=== PATIENT | female | born 1975 | race African-American/Black ===

== ENCOUNTER 2018-06-30 06:10 | Emergency (ER) | payer MEDICAID, MEDICARE ==
[~2018-06-30] VITALS: Ht 180.3 cm; Wt 102.0 kg
[2018-06-30] MEDS ORDERED: IBUPROFEN 600MG TABLET PO ONE (06:45)
[2018-06-30 09:45] VITALS: BP 127/82
== END 2018-06-30 10:16 | disposition home or self-care (01) ==
LOC: ER 06:20
DX: S40.012A Contusion of left shoulder, initial encounter (principal); S00.83XA Contusion of other part of head, initial encounter; S90.01XA Contusion of right ankle, initial encounter; M19.90 Unspecified osteoarthritis, unspecified site; Z98.890 Other specified postprocedural states; Z88.6 Allergy status to analgesic agent; Z88.8 Allergy status to other drugs, medicaments and biological substances; Y04.0XXA Assault by unarmed brawl or fight, initial encounter; Y08.89XA Assault by other specified means, initial encounter; Y93.89 Activity, other specified; Y92.89 Other specified places as the place of occurrence of the external cause
CPT/HCPCS: 70110; 73030; 73610; 81025; 99284

== ENCOUNTER 2021-09-24 15:15 | Emergency (ER) | payer MEDICARE, OTHER ==
[~2021-09-24] VITALS: Ht 180.3 cm; Wt 100.0 kg
[2021-09-24 15:23] VITALS: BP 127/61
== END 2021-09-24 16:27 | disposition left against medical advice (07) ==
LOC: ER 15:15
DX: Z53.21 Procedure and treatment not carried out due to patient leaving prior to being seen by health care provider (principal)